=== PATIENT | male | born 1950 | race Native Hawaiian/Other Pacific Islander ===

== ENCOUNTER 2020-06-09 07:38 | Day surgery (SDC) | payer OTHER, MEDICARE ==
[~2020-06-09] VITALS: Ht 30.5 cm; Wt 0.5 kg
== END 2020-06-09 09:23 | disposition home or self-care (01) ==
LOC: OR 07:38
PROC: 3E0R33Z Introduction of Anti-inflammatory into Spinal Canal, Percutaneous Approach (ICD-10-PCS; principal; 2020-06-09)
PROC: B01BYZZ Fluoroscopy of Spinal Cord using Other Contrast (ICD-10-PCS; 2020-06-09)
DX: M51.16 Intervertebral disc disorders with radiculopathy, lumbar region (principal)
CPT/HCPCS: J1020

== ENCOUNTER 2020-06-18 09:25 | Emergency (ER) | payer OTHER, MEDICARE ==
[~2020-06-18] VITALS: Ht 167.6 cm; Wt 89.8 kg
[2020-06-18 09:30] VITALS: TEMP 99.1
[2020-06-18 10:14] LABS: PLATELET COUNT 103 K/uL (142-355); POTASSIUM 4.3 mmol/L (3.6-5.2)
[2020-06-18 10:25] LABS: PARTIAL THROMBOPLASTIN TIME 24.1 SECONDS (24.5-33.6)
[2020-06-18 11:25] VITALS: BP 126/72
== END 2020-06-18 11:25 | disposition home or self-care (01) ==
LOC: ED 09:25
PROVIDERS: Hospitalist
DX: M79.672 Pain in left foot (principal); M25.572 Pain in left ankle and joints of left foot; M77.32 Calcaneal spur, left foot
CPT/HCPCS: 80048; 85027; 85379; 85610; 85730; 96372; 99283; J0696; J1885

== ENCOUNTER 2020-08-04 10:09 | Day surgery (SDC) | payer OTHER, MEDICARE ==
[~2020-08-04] VITALS: Ht 30.5 cm; Wt 0.5 kg
== END 2020-08-04 11:04 | disposition home or self-care (01) ==
LOC: OR 10:09
PROC: 3E0R33Z Introduction of Anti-inflammatory into Spinal Canal, Percutaneous Approach (ICD-10-PCS; principal; 2020-08-04)
PROC: 3E0R3BZ Introduction of Anesthetic Agent into Spinal Canal, Percutaneous Approach (ICD-10-PCS; 2020-08-04)
DX: M53.3 Sacrococcygeal disorders, not elsewhere classified (principal); M46.1 Sacroiliitis, not elsewhere classified
CPT/HCPCS: J1020; J3490

== ENCOUNTER 2020-10-21 11:16 | Outpatient (CLI) | payer OTHER, MEDICARE ==
[2020-10-21 11:59] LABS: POTASSIUM 4.8 mmol/L (3.6-5.2)
[2020-10-21 12:08] LABS: PLATELET COUNT 131 K/uL (142-355)
== END 2020-10-21 23:47 | disposition home or self-care (01) ==
LOC: LABW 11:16
PROVIDERS: ATTEND Internal Medicine
DX: I10 Essential (primary) hypertension (principal); C91.10 Chronic lymphocytic leukemia of B-cell type not having achieved remission; I25.10 Atherosclerotic heart disease of native coronary artery without angina pectoris; R82.998 Other abnormal findings in urine
CPT/HCPCS: 36415; 80053; 80061; 80162; 81000; 84439; 84443; 85027; 87077; 87086; 87088; 87185; 87186